=== PATIENT | male | born 1980 | race Caucasian/White ===

== ENCOUNTER 2020-08-24 22:46 | Emergency (ER) | payer SELFPAY ==
[2020-08-24] VITALS (7 sets, daily range): BP systolic 86–146; BP diastolic 61–125; PULSE 114–149; RESP 26; TEMP 36.3; O2SAT 100; BMI 37.0
--- NOTE | 2020-08-24 22:49 | EKG12_ITS ---
Test Reason : TRAUMA Blood Pressure : / mmHG Vent. Rate : 132 BPM Atrial Rate : 132 BPM P-R Int : 140 ms QRS Dur : 102 ms QT Int : 306 ms P-R-T Axes : 039 060 004 degrees QTc Int : [address] & T wave abnormality, consider inferior ischemia Abnormal ECG Confirmed by PAT PETTY, SARA ([id number]), film editor MIKE ARCE ([id number]) on 08/28/2020 2:18:39 PM Referred By: MASON Confirmed By:SARA STEWART MD
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
[2020-08-24] MEDS: 0.9% Normal Saline 1,000 ML 999 ML IV (22:56)
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
[2020-08-24 22:59] LABS: Absolute Lymphocyte Count 3.94 X10^3/uL (0.83-4.51); Absolute Neutrophil Count 4.3 X10^3/uL (2.0-7.7); Basophil# 0.05 X10^3/uL; Basophil% 0.5 % (0-1); Eosinophil# 0.06 X10^3/uL; Eosinophils% 0.7 % (0-5); Hemoglobin 15.3 g/dL (13.0-16.5); Lymphocyte # 3.94 X10^3/ul (4.0); Lymphocyte % 42.7 % (19-41); Mean Corp Hgb Conc 34.8 g/dL (32-36); Mean Corpuscular Hgb 34.2 pg (27.0-32.0); Mean Corpuscular Volume 98.4 fL (80-94); Mean Platelet Vol. 9.6 fl (6.2-12.0); Monocyte# 0.75 X10^3/uL; Monocyte% 8.1 % (0-10); NRBC Flagged by Analyzer 0 % (0-5); Neutrophil # 4.34 X10^3/uL (2.7-7.7); Neutrophil % 47.1 % (47-70); Platelet Count 235 K/mm3 (150-450); RBC Distribution Width CV 11.9 % (11.6-14.6); RBC Distribution Width SD 42.9 fl (35.1-43.9); Red Blood Count 4.47 M/mm3 (4.6-6.2); White Blood Count 9.2 K/mm3 (4.4-11.0)
[2020-08-24] MEDS: Morphine 4 MG/ML Syringe IV (23:06)
[2020-08-24] MEDS: Ondansetron 4 MG/2 ML Vial IV (23:08)
[2020-08-24 23:09] LABS: International Normalized Ratio 1.2; Partial Thromboplast Time 26.1 Seconds (24.1-36.2); Prothrombin Time (Protime)PT. 14.5 SECONDS (11.7-14.9)
[2020-08-24] MEDS: Diphth,Pertuss(Acell),Tet Vac 0.5 ML Vial IM (23:09)
[2020-08-24] MEDS: Cefazolin 1 GM/50 ML BAG IV (23:10)
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
[2020-08-24 23:15] LABS: Anion Gap 7 (5-15); BUN 14 mg/dL (7-18); BUN/Creat Ratio 9.1 RATIO (10-20); Calcium,Total 8.6 mg/dL (8.5-10.1); Chloride 104 mmol/L (98-107); Creatinine, Serum 1.54 mg/dL (0.70-1.30); EST Glomerular Filtration Rate 54 mL/min (>60); Est Glom Filt Rate - Afr Amer 65 mL/min (>60); Estimated Creatinine Clearance 71.39 ml/min; Glucose 168 mg/dL (74-106); Potassium 3.3 mmol/L (3.5-5.1); Sodium Level 137 mmol/L (136-145)
[2020-08-24] MEDS: Etomidate 20 MG/10 ML Vial IV (23:18)
--- NOTE | 2020-08-24 23:18 | ED.RN ---
NO OLD EKGS IN [place]UES
[2020-08-24] MEDS: Rocuronium Bromide 50 MG/5 ML Vial 78 MG IV (23:19)
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
--- NOTE | 2020-08-24 23:52 | CPS ---
Patient was intubated at 23:19 8.0 @ 26 right lip. Color change and equal breath sounds bilaterally was observed. After 5-10 mins of bagging, patient was noted to have a leak in endotracheal tube cuff. Tube was therefore exchanged using the [employer] airway exchanger. Tube now is 8.0 @ 25 right lip. Color change and equal breath sounds was again observed.
--- NOTE | 2020-08-25 01:06 | ED.RN ---
CHART OPENED TO ANSWER A QUESTION FOR AN [facility] RN ABOUT ALLERGIES
== END 2020-08-25 00:10 | disposition short-term general hospital (02) ==
PROVIDERS: Emergency Provider Emergency Medicine
DX: T79.4XXA Traumatic shock, initial encounter (principal); D62 Acute posthemorrhagic anemia; R00.0 Tachycardia, unspecified; I95.9 Hypotension, unspecified; J96.01 Acute respiratory failure with hypoxia; F10.129 Alcohol abuse with intoxication, unspecified; S21.112A Laceration without foreign body of left front wall of thorax without penetration into thoracic cavity, initial encounter; W26.1XXA Contact with sword or dagger, initial encounter; Y93.9 Activity, unspecified; Y92.9 Unspecified place or not applicable
CPT/HCPCS: 31500; 36556; 51702; 71045; 74018; 74177; 80048; 82077; 85025; 85610; 85730; 86850; 86900; 86901; 90715; 93005; 96365; 96375; 99251; 99285; J7030; J7050; P9016; Q9967; A4216; G0463; J2405

== ENCOUNTER 2022-10-07 03:48 | Emergency (ER) | payer BC, SELFPAY ==
[2022-10-07 03:49] VITALS: BP 139/96; PULSE 67; RESP 16; TEMP 36.4; O2SAT 99; BMI 25.7
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
--- NOTE | 2022-10-07 03:57 | EKG12_ITS ---
Test Reason : DYSRHYTHMIA Blood Pressure : / mmHG Vent. Rate : 064 BPM Atrial Rate : 064 BPM P-R Int : 154 ms QRS Dur : 110 ms QT Int : 402 ms P-R-T Axes : 066 049 043 degrees QTc Int : 414 ms Normal sinus rhythm Normal ECG Confirmed by PAT PETTY, SARA ([id number]), general expeditor JORGE COLE ([id number]) on 10/09/2022 2:14:13 PM Referred By: ISAAC Confirmed By:SARA STEWART MD
[2022-10-07] MEDS: 0.9% Normal Saline 1,000 ML 1000 ML IV (04:11)
[2022-10-07 04:19] LABS: Absolute Lymphocyte Count 1.35 X10^3/uL (0.83-4.51); Absolute Neutrophil Count 3.4 X10^3/uL (2.0-7.7); Basophil# 0.02 X10^3/uL; Basophil% 0.4 % (0-1); Eosinophil# 0.03 X10^3/uL; Eosinophils% 0.5 % (0-5); Hemoglobin 15.2 g/dL (13.0-16.5); Lymphocyte # 1.35 X10^3/ul (0.83-4.51); Lymphocyte % 24.6 % (19-41); Mean Corp Hgb Conc 35.3 g/dL (32-36); Mean Corpuscular Hgb 33.1 pg (27.0-32.0); Mean Corpuscular Volume 93.7 fL (80-94); Mean Platelet Vol. 9.6 fl (6.2-12.0); Monocyte# 0.66 X10^3/uL; NRBC Flagged by Analyzer 0 % (0-5); Neutrophil # 3.41 X10^3/uL (2.7-7.7); Neutrophil % 62.1 % (47-70); Platelet Count 175 K/mm3 (150-450); RBC Distribution Width CV 11.9 % (11.6-14.6); RBC Distribution Width SD 40.5 fl (35.1-43.9); Red Blood Count 4.59 M/mm3 (4.6-6.2); White Blood Count 5.5 K/mm3 (4.4-11.0)
[2022-10-07 04:45] LABS: ALB/GLOB Ratio 1.2 RATIO (0.9-2.4); AST(SGOT) 17 U/L (15-37); Alanine Aminotransfer ALT/SGPT 22 U/L (16-61); Albumin, Serum 4.3 g/dL (3.2-5.0); Alkaline Phosphatase 60 U/L (45-117); Anion Gap 7 (5-15); BUN 11 mg/dL (7-18); BUN/Creat Ratio 6.7 RATIO (10-20); Calcium,Total 9.7 mg/dL (8.5-10.1); Chloride 103 mmol/L (98-107); Creatinine, Serum 1.64 mg/dL (0.70-1.30); EST Glomerular Filtration Rate 50 mL/min (>60); Est Glom Filt Rate - Afr Amer 60 mL/min (>60); Estimated Creatinine Clearance 75.46 ml/min; Globulin 3.6 g/dL (2.2-4.2); Glucose 123 mg/dL (74-106); Potassium 3.8 mmol/L (3.5-5.1); Protein, Total 7.9 g/dL (6.4-8.2); Sodium Level 139 mmol/L (136-145)
[2022-10-07 04:50] LABS: Amphetamine Urine VISTA POSITIVE (<1000 ng/mL); Barbiturate Urine VISTA NEGATIVE (< 200 ng/mL); Benzodiazepine Urine VISTA NEGATIVE (< 200 ng/mL); Cocaine Urine VISTA NEGATIVE (< 300 ng/mL); Ecstacy Urine VISTA POSITIVE (< 500 ng/mL); Methadone Urine VISTA NEGATIVE (< 300 ng/mL); PCP Urine VISTA NEGATIVE (< 25 ng/mL); THC Urine VISTA NEGATIVE (< 50 ng/mL); Vista UDS pH Range 5
== END 2022-10-07 05:30 | disposition home or self-care (01) ==
PROVIDERS: Emergency Provider Emergency Medicine; Visit Provider Emergency Medicine
DX: R42 Dizziness and giddiness (principal); F15.10 Other stimulant abuse, uncomplicated; F16.10 Hallucinogen abuse, uncomplicated
CPT/HCPCS: 80053; 80307; 82077; 85025; 93005; 96360; 99283; J7030; A4216